=== PATIENT | female | born 1995 | race Caucasian/White ===

== ENCOUNTER 2022-02-05 06:16 | Inpatient (IN) | payer MEDICAID ==
[~2022-02-05] VITALS: Ht 149.9 cm; Wt 60.3 kg
[2022-02-05] MEDS ORDERED: MISOPROSTOL 100MCG TABLET VG SCH (07:45)
[2022-02-05] MEDS ORDERED: RHO(D) IMMUNE GLOBULIN 300 MCG/SYR IM ONE (07:45)
[2022-02-05] MEDS ORDERED: CARBOPROST TROMETHAMINE 250 MCG/ML AMPUL IM PRN (07:45)
[2022-02-05] MEDS ORDERED: NALOXONE HCL 0.4 MG/ML 1ML VIAL IM PRN (07:45)
[2022-02-05] MEDS ORDERED: LACTATED RINGERS 1,000 ML IV SCH (07:45)
[2022-02-05] MEDS ORDERED: METHYLERGONOVINE MALEATE 0.2 MG/ML IM PRN ×2 (07:45→09:15)
[2022-02-05] MEDS ORDERED: OXYTOCIN 30 UNITS/500ML NS PMX 500 ML IV SCH (07:45)
[2022-02-05] MEDS ORDERED: PENICILLIN G POTASSIUM 5 MMU in DEXT 5% WATER 100 ML IV SCH (07:45)
[2022-02-05] MEDS ORDERED: LIDOCAINE HCL 1% 20ML VIAL (Pyxis) INJ INFIL SCH (07:45)
[2022-02-05 08:10] LABS: BASOPHILS % 0.6 % (0.0-2.0); EOSINOPHILS % 0.1 % (0.0-5.0); HEMOGLOBIN. 10.4 g/dL (12.0-16.0); LYMPHOCYTES % 11.1 % (20.0-50.0); MEAN CORPUSCULAR HEMOGLOBIN 23.2 pg (28.0-32.0); MEAN CORPUSCULAR VOLUME 73.4 fL (81.0-99.0); MEAN PLATELET VOLUME 10.3 fl (7.4-10.4); MONOCYTES % 4.6 % (2.0-8.0); NEUTROPHILS % 83.6 % (40.0-76.0); PLATELET 224 x1000/uL (130-400); RED BLOOD CELL COUNT 4.49 mill/uL (4.2-5.4)
[2022-02-05 08:26] LABS: CLARITY URINE CLOUDY (CLEAR); COLOR URINE YELLOW (YELLOW); KETONES URINE 2+ (NEGATIVE); NITRITE URINE NEGATIVE (NEGATIVE); OCCULT BLOOD URINE 2+ (NEGATIVE); PROTEIN URINE 1+ (NEGATIVE); UROBILINOGEN URINE 0.2 E.U./dL (0.2-1.0)
[2022-02-05 08:27] LABS: LEUKOCYTE ESTERASE URINE 1+ (NEGATIVE)
[2022-02-05 08:52] LABS: *AMPHETAMINES SCREEN URINE NEGATIVE (NEGATIVE); *BARBITURATES SCREEN URINE NEGATIVE (NEGATIVE); *BENZODIAZEPINES SCREEN URINE NEGATIVE (NEGATIVE); *COCAINE SCREEN URINE NEGATIVE (NEGATIVE); CANNABINOID URINE SCREEN NEGATIVE (NEGATIVE); METHADONE URINE SCREEN NEGATIVE (NEGATIVE); OPIATES URINE SCREEN NEGATIVE (NEGATIVE); PHENCYCLIDINE URINE SCREEN NEGATIVE (NEGATIVE)
[2022-02-05] MEDS: OXYTOCIN 30 UNITS/500ML NS PMX 500 ML IV SCH ×2 (09:12→11:58)
[2022-02-05] MEDS ORDERED: IBUPROFEN 400MG TABLET PO PRN (09:15)
[2022-02-05] MEDS ORDERED: HEMORRHOIDAL SUPP PR PRN (09:15)
[2022-02-05] MEDS ORDERED: ACETAMINOPHEN WITH CODEINE 300/30MG TABLET PO PRN (09:15)
[2022-02-05] MEDS ORDERED: GLYCERIN/WITCH HAZEL LEAF MEDICATED PAD TOP PRN (09:15)
[2022-02-05] MEDS ORDERED: BENZOCAINE/LANOLIN/ALOE VERA SPRAY TOP PRN (09:15)
[2022-02-05] MEDS ORDERED: RHO(D) IMMUNE GLOBULIN 300 MCG/SYR IM PRN (09:15)
[2022-02-05] MEDS ORDERED: LANOLIN OINT 7GM TUBE TOP PRN (09:15)
[2022-02-05] MEDS ORDERED: BISACODYL 10MG SUPP PR PRN (09:15)
[2022-02-05] MEDS ORDERED: DIPHENHYDRAMINE 25MG CAPSULE PO PRN (09:15)
[2022-02-05 09:28] LABS: INR 0.9; PARTIAL THROMBOPLASTIN TIME 27.6 sec (23.4-31.0); PROTHROMBIN TIME 9.8 sec (9.6-11.0)
[2022-02-05 11:33] LABS: HEPATITIS B SURFACE ANTIGEN NEGATIVE
[2022-02-05 12:30] VITALS: BP 124/86
[2022-02-05] MEDS: MAGNESIUM/ALUMINUM HYDROXIDE/SIMETHICONE 30ML UDC PO SCH ×2 (12:55→17:01)
[2022-02-05] MEDS: SIMETHICONE 80MG TABLET CHEW PO SCH ×3 (12:56→22:51)
[2022-02-05] MEDS: IBUPROFEN 800MG TABLET PO PRN ×2 (12:56→22:52)
[2022-02-05 16:00] VITALS: BP 125/75
[2022-02-05 20:00] VITALS: BP 125/86
[2022-02-05] MEDS: DOCUSATE SODIUM 100MG CAPSULE PO SCH (22:51)
[2022-02-06 06:39] LABS: BASOPHILS % 0.3 % (0.0-2.0); EOSINOPHILS % 0.5 % (0.0-5.0); HEMATOCRIT. 27.8 % (36.0-48.0); HEMOGLOBIN. 8.8 g/dL (12.0-16.0); LYMPHOCYTES % 19.6 % (20.0-50.0); MEAN CORPUSCULAR HEMOGLOBIN 23.3 pg (28.0-32.0); MEAN CORPUSCULAR VOLUME 73.8 fL (81.0-99.0); MEAN PLATELET VOLUME 9.7 fl (7.4-10.4); MONOCYTES % 7.1 % (2.0-8.0); NEUTROPHILS % 72.5 % (40.0-76.0); PLATELET 176 x1000/uL (130-400); RED BLOOD CELL COUNT 3.76 mill/uL (4.2-5.4)
[2022-02-06 06:48] VITALS: BP 111/74
[2022-02-06 08:00] VITALS: BP 115/82
[2022-02-06] MEDS: FERROUS SULFATE 325MG TABLET PO SCH (09:23)
[2022-02-06] MEDS: SIMETHICONE 80MG TABLET CHEW PO SCH ×2 (09:23→21:21)
[2022-02-06] MEDS: PRENATAL VIT/FE FUMARATE/FA TABLET PO SCH (09:23)
[2022-02-06] MEDS: MAGNESIUM/ALUMINUM HYDROXIDE/SIMETHICONE 30ML UDC PO SCH ×2 (09:23→21:20)
[2022-02-06 16:00] VITALS: BP 118/79
[2022-02-06] MEDS: IBUPROFEN 800MG TABLET PO PRN (19:24)
[2022-02-06 19:30] VITALS: BP 128/87
[2022-02-06] MEDS: DOCUSATE SODIUM 100MG CAPSULE PO SCH (21:21)
[2022-02-07] MEDS: IBUPROFEN 800MG TABLET PO PRN (03:45)
[2022-02-07 04:00] VITALS: BP 118/84
[2022-02-07 08:00] VITALS: BP 114/85
[2022-02-07] MEDS: MAGNESIUM/ALUMINUM HYDROXIDE/SIMETHICONE 30ML UDC PO SCH (08:12)
[2022-02-07] MEDS: SIMETHICONE 80MG TABLET CHEW PO SCH (08:12)
[2022-02-07] MEDS: PRENATAL VIT/FE FUMARATE/FA TABLET PO SCH (08:12)
[2022-02-07] MEDS: FERROUS SULFATE 325MG TABLET PO SCH (08:12)
== END 2022-02-07 12:00 | disposition home or self-care (01) | DRG 560 ==
LOC: 8 EST LDRP 06:16 → OBSVTOIN 06:16 → 8 EST A/PP 12:09
PROVIDERS: ADMIT Obstetrics & Gynecology; ATTEND Obstetrics & Gynecology
PROC: 10E0XZZ Delivery of Products of Conception, External Approach (ICD-10-PCS; principal; 2022-02-05)
PROC: 0HQ9XZZ Repair Perineum Skin, External Approach (ICD-10-PCS; 2022-02-05)
PROC: 10907ZC Drainage of Amniotic Fluid, Therapeutic from Products of Conception, Via Natural or Artificial Opening (ICD-10-PCS; 2022-02-05)
DX: O69.81X0 Labor and delivery complicated by cord around neck, without compression, not applicable or unspecified (principal); Z37.0 Single live birth; O70.0 First degree perineal laceration during delivery; Z20.822 Contact with and (suspected) exposure to COVID-19; O99.02 Anemia complicating childbirth; Z3A.38 38 weeks gestation of pregnancy
CPT/HCPCS: 36415; 80305; 81003; 85025; 86592; 86703; 86762; 86850; 86900; 87340; 87426; 99281; J2540; J3490; J7060; J7120; J2590

== ENCOUNTER 2022-07-02 12:49 | Emergency (ER) | payer MEDICAID ==
[~2022-07-02] VITALS: Ht 149.9 cm; Wt 56.0 kg
[2022-07-02 12:56] VITALS: BP 129/94
== END 2022-07-02 16:39 | disposition home or self-care (01) ==
LOC: ER 12:49
DX: G56.00 Carpal tunnel syndrome, unspecified upper limb (principal); D64.9 Anemia, unspecified
CPT/HCPCS: 99281